=== PATIENT | female | born 1995 | race Caucasian/White ===

== ENCOUNTER → 2017-01-07 | Outpatient (CLI) | payer OTHER ==
--- NOTE | 2017-01-07 09:17 | DIAGNOSTIC IMAGING REPORT ---
RIGHT FOOT MIN 3 VIEWS HISTORY: 21 years-old Female F/U RIGHT FOOT FX Right acute right foot pain status post trauma. COMPARISON: None available. TECHNIQUE: 3 views of the right foot. FINDINGS: There is an acute mildly comminuted nondisplaced fracture of the distal metaphyseal portion of the fifth metatarsal with apex lateral angulation of approximately 20 degrees. Mild lateral forefoot soft tissue swelling. No opaque foreign body. IMPRESSION: Acute mildly comminuted nondisplaced and mildly angulated fracture of the distal metaphyseal fifth metatarsal. The above report was generated using voice recognition software. It may contain grammatical, syntax or spelling errors. Electronically signed by: Jacek Conley M.D. 01/07/2017 9:15 AM Dictated Date/Time: 01/07/2017 9:13 AM
== END | disposition home or self-care (01) ==
LOC: C.RDSM 09:01
PROVIDERS: ATTEND Family Medicine
DX: T14.8 Other injury of unspecified body region (principal); X58.XXXA Exposure to other specified factors, initial encounter